=== PATIENT | female | born 1950 | race Caucasian/White ===

== ENCOUNTER 2023-01-05 10:56 | Emergency (ER) | payer MEDICARE ==
--- NOTE | 2023-01-05 11:10 | ED ---
General Adult HPI - General Source: patient, RN notes reviewed Mode of arrival: ambulatory Limitations: no limitations <Kevin Daniels - Last Filed: 01/05/23 11:09> <Ann Lugo - Last Filed: 01/05/23 19:02> - General Stated complaint: sob uti/kidney/bladder issues Time Seen by Provider: 01/05/23 11:09 - History of Present Illness Initial comments: This a 72-year-old female presents emergency Department chief complaint of abdominal back pain. Patient states that she started having some back, flank pain no she was given Anaprox by PCP for possible UTI. She states her urine was very dark at the time but has improved some. She states the pain in her back as sniffily worsened. She states it does hurt to move denies any trauma. She states she still having some abdominal urinary issues also. (Kevin Daniels) - Related Data Home Medications Medication Instructions Recorded Confirmed ALPRAZolam [Xanax] 0.5 mg PO BID PRN 01/05/23 01/05/23 Aspirin EC [Ecotrin] 325 mg PO MOWEFR 01/05/23 01/05/23 Levothyroxine Sodium [Synthroid] 150 mcg PO DAILY 01/05/23 01/05/23 Ondansetron [Zofran] 4 mg PO DAILY PRN 01/05/23 01/05/23 Pregabalin [Lyrica] 75 mg PO HS 01/05/23 01/05/23 Venlafaxine HCl ER [Effexor Xr] 150 mg PO HS 01/05/23 01/05/23 Previous Rx's Medication Instructions Recorded Cyclobenzaprine [Flexeril] 10 mg PO TID PRN #15 tab 01/05/23 Ketorolac [Toradol] 10 mg PO Q8HR #15 tab 01/05/23 Allergies Allergy/AdvReac Type Severity Reaction Status Date / Time Tetanus Vaccines and Toxoid Allergy Swelling Verified 01/05/23 13:43 IV contrast Allergy Swelling Uncoded 01/05/23 13:43 Review of Systems ROS Other: All systems not noted in ROS Statement are negative. <Kevin Daniels - Last Filed: 01/05/23 11:09> ROS Other: All systems not noted in ROS Statement are negative. <Ann Lugo - Last Filed: 01/05/23 19:02> ROS Statement: Those systems with pertinent positive or pertinent negative responses have been documented in the HPI. General Exam <Kevin Daniels - Last Filed: 01/05/23 11:09> - General Exam Comments Initial Comments: Visual Physical Exam Vital signs reviewed General: Well-appearing, nontoxic, no acute distress. Head: Normocephalic, atraumatic Eyes: PERRLA, EOMI ENT: Airway patent Chest: Nonlabored breathing Skin: No visual rash, normal skin tone Neuro: Alert and oriented 3 Musculoskeletal: No gross abnormalities (Kevin Daniels) Course <Ann Lugo - Last Filed: 01/05/23 19:02> Vital Signs 01/05/23 01/05/23 01/05/23 11:17 14:46 16:48 Temperature 98.5 F Pulse Rate 72 69 69 Respiratory 18 18 18 Rate Blood Pressure 92/66 108/70 108/71 O2 Sat by Pulse 99 97 97 Oximetry - Reevaluation(s) Reevaluation #1: 01/05/23 14:20 Patient reevaluated. Patient reports symptomatically improvement status post Toradol. Encouraged to provide urine sample. (Ann Lugo) Medical Decision Making <Kevin Daniels - Last Filed: 01/05/23 11:09> - Lab Data Result diagrams: 01/05/23 11:30 01/05/23 11:29 <Ann Lugo - Last Filed: 01/05/23 19:02> - Medical Decision Making I completed the quick note portion of this chart signed Kevin Daniels PA-C (Kevin Daniels) Was pt. sent in by a medical professional or institution (NIMISHA Woodward, STERILE PROCESSING MANAGER, urgent care, hospital, or half-way...) When possible be specific @ -[No] Did you speak to anyone other than the patient for history (EMS, parent, family, police, friend...)? What history was obtained from this source @ -[No] Did you review nursing and triage notes (agree or disagree)? Why? @ -[I reviewed and agree with nursing and triage notes] Were old charts reviewed (outside hosp., previous admission, EMS record, old EKG, old radiological studies, urgent care reports/EKG's, half-way records)? Report findings @ -[No old charts were reviewed] Differential Diagnosis (chest pain, altered mental status, abdominal pain women, abdominal pain men, vaginal bleeding, weakness, fever, dyspnea, syncope, headache, dizziness, GI bleed, back pain, seizure, CVA, palpatations, mental health, musculoskeletal)? @ -[not applicable] EKG interpreted by me (3pts min.). @ -[As above] X-rays interpreted by me (1pt min.). @ -[None done] CT interpreted by me (1pt min.). @ -Yes CT imaging unremarkable for any evidence of paraspinal abscess or intra- abdominal process U/S interpreted by me (1pt. min.). @ -[None done] What testing was considered but not performed or refused? (CT, X-rays, U/S, labs)? Why? @ -[None] What meds were considered but not given or refused? Why? @ -[None] Did you discuss the management of the patient with other professionals (professionals i.e. , PA, STERILE PROCESSING MANAGER, lab, RT, psych nurse, hospice social worker, composition weatherboard applier, teacher, medical officer, case assembler)? Give summary @ -[No] Was smoking cessation discussed for >3mins.? @ -[No] Was critical care preformed (if so, how long)? @ -[No] Were there social determinants of health that impacted care today? How? (Homelessness, low income, unemployed, alcoholism, drug addiction, transportation, low edu. Level, literacy, decrease access to med. care, residential, rehab)? @ -[No] Was there de-escalation of care discussed even if they declined (Discuss DNR or withdrawal of care, Hospice)? DNR status @ -[No] What co-morbidities impacted this encounter? (DM, HTN, Smoking, COPD, CAD, Cancer, CVA, ARF, Chemo, Hep., AIDS, mental health diagnosis, sleep apnea, morbid obesity)? @ -[None] Was patient admitted / discharged? Hospital course, mention meds given and route, prescriptions, significant lab abnormalities, going to OR and other pertinent info. @ -Discharged. This is a 72-year-old female who presents to the emergency department with back pain. Patient had a thorough history and physical exam performed. Physical exam reveals left-sided CVA tenderness. Patient's vital signs stable. Patient is afebrile. Heart rate regular rate and rhythm, lungs clear to auscultation. Patient had laboratory studies and imagin g which were unremarkable. She was provided Toradol and Flexeril was symptomatically improvement. She'll be discharged home in stable condition. Return precautions discussed at length. She was offered another course of antibiotics however she declined stating she will be seeing her primary care physician on 01/14/2023. Case discussed with MAX Brito who agrees with plan of care Undiagnosed new problem with uncertain prognosis? @ -[No] Drug Therapy requiring intensive monitoring for toxicity (Heparin, Nitro, Insulin, Cardizem)? @ -[No] Were any procedures done? @ -[No] Diagnosis/symptom? @ -Back Pain Acute, or Chronic, or Acute on Chronic? @ -Acute Uncomplicated (without systemic symptoms) or Complicated (systemic symptoms)? @ -Uncomplicated Side effects of treatment? @ -[No] Exacerbation, Progression, or Severe Exacerbation? @ -[No] Poses a threat to life or bodily function? How? (Chest pain, [place], SD, pneumonia, PE, COPD, DKA, ARF, appy, cholecystitis, CVA, Diverticulitis, Homicidal, Suicidal, threat to staff... and all critical care pts) @ -Low likleihood (Ann Lugo) - Lab Data Lab Results 01/05/23 01/05/23 01/05/23 Range/Units 11:29 11:29 11:30 WBC 10.4 (3.8-10.6) k/uL RBC 4.54 (3.80-5.40) m/uL Hgb 13.2 (11.4-16.0) gm/dL Hct 40.3 (34.0-46.0) % MCV 88.9 (80.0-100.0) fL MCH 29.2 (25.0-35.0) pg MCHC 32.8 (31.0-37.0) g/dL RDW 13.6 (11.5-15.5) % Plt Count 263 (150-450) k/uL MPV 8.7 Neutrophils % 49 % Lymphocytes % 40 % Monocytes % 6 % Eosinophils % 2 % Basophils % 1 % Neutrophils # 5.1 (1.3-7.7) k/uL Lymphocytes # 4.2 (1.0-4.8) k/uL Monocytes # 0.7 (0-1.0) k/uL Eosinophils # 0.2 (0-0.7) k/uL Basophils # 0.1 (0-0.2) k/uL Sodium 140 (137-145) mmol/L Potassium 4.5 (3.5-5.1) mmol/L Chloride 107 (98-107) mmol/L Carbon Dioxide 23 (22-30) mmol/L Anion Gap 10 mmol/L BUN 14 (7-17) mg/dL Creatinine 0.87 (0.52-1.04) mg/dL Est GFR (CKD-EPI)AfAm 78 (>60 ml/min/1.73 sqM) Est GFR (CKD-EPI)NonAf 67 (>60 ml/min/1.73 sqM) Glucose 99 (74-99) mg/dL Plasma Lactic Acid Jarad (0.7-2.0) mmol/L Calcium 9.3 (8.4-10.2) mg/dL Total Bilirubin 0.7 (0.2-1.3) mg/dL AST 28 (14-36) U/L ALT 14 (4-34) U/L Alkaline Phosphatase 107 (38-126) U/L Total Protein 7.1 (6.3-8.2) g/dL Albumin 4.0 (3.5-5.0) g/dL Amylase 58 (30-110) U/L Lipase 87 (23-300) U/L Urine Color Yellow Urine Appearance Clear (Clear) Urine pH 5.5 (5.0-8.0) Ur Specific [place] >1.050 H (1.001-1.035) Urine Protein Trace H (Negative) Urine Glucose (UA) Negative (Negative) Urine Ketones Negative (Negative) Urine Blood Small H (Negative) Urine Nitrite Negative (Negative) Urine Bilirubin Negative (Negative) Urine Urobilinogen <2.0 (<2.0) mg/dL Ur Leukocyte Esterase Large H (Negative) Urine RBC 18 H (0-5) /hpf Urine WBC 20 H (0-5) /hpf Ur Squamous Epith Cells 4 (0-4) /hpf Urine Mucus Few H (None) /hpf 01/05/23 Range/Units 11:30 WBC (3.8-10.6) k/uL RBC (3.80-5.40) m/uL Hgb (11.4-16.0) gm/dL Hct (34.0-46.0) % MCV (80.0-100.0) fL MCH (25.0-35.0) pg MCHC (31.0-37.0) g/dL RDW (11.5-15.5) % Plt Count (150-450) k/uL MPV Neutrophils % % Lymphocytes % % Monocytes % % Eosinophils % % Basophils % % Neutrophils # (1.3-7.7) k/uL Lymphocytes # (1.0-4.8) k/uL Monocytes # (0-1.0) k/uL Eosinophils # (0-0.7) k/uL Basophils # (0-0.2) k/uL Sodium (137-145) mmol/L Potassium (3.5-5.1) mmol/L Chloride (98-107) mmol/L Carbon Dioxide (22-30) mmol/L Anion Gap mmol/L BUN (7-17) mg/dL Creatinine (0.52-1.04) mg/dL Est GFR (CKD-EPI)AfAm (>60 ml/min/1.73 sqM) Est GFR (CKD-EPI)NonAf (>60 ml/min/1.73 sqM) Glucose (74-99) mg/dL Plasma Lactic Acid Jarad 2.0 (0.7-2.0) mmol/L Calcium (8.4-10.2) mg/dL Total Bilirubin (0.2-1.3) mg/dL AST (14-36) U/L ALT (4-34) U/L Alkaline Phosphatase (38-126) U/L Total Protein (6.3-8.2) g/dL Albumin (3.5-5.0) g/dL Amylase (30-110) U/L Lipase (23-300) U/L Urine Color Urine Appearance (Clear) Urine pH (5.0-8.0) Ur Specific [place] (1.001-1.035) Urine Protein (Negative) Urine Glucose (UA) (Negative) Urine Ketones (Negative) Urine Blood (Negative) Urine Nitrite (Negative) Urine Bilirubin (Negative) Urine Urobilinogen (<2.0) mg/dL Ur Leukocyte Esterase (Negative) Urine RBC (0-5) /hpf Urine WBC (0-5) /hpf Ur Squamous Epith Cells (0-4) /hpf Urine Mucus (None) /hpf Disposition <Kevin Daniels - Last Filed: 01/05/23 11:09> Is patient prescribed a controlled substance at d/c from ED?: No Time of Disposition: 15:44 <Ann Lugo - Last Filed: 01/05/23 19:02> Clinical Impression: Mechanical back pain Disposition: HOME SELF-CARE Condition: Stable Instructions (If sedation given, give patient instructions): Acute Low Back Pain (ED) Additional Instructions: Monittor symptoms closely Please return to the nearest emergency department if fever, saddle paresthesia, loss of bowel or bladder function developed Prescriptions: Cyclobenzaprine [Flexeril] 10 mg PO TID PRN #15 tab PRN Reason: Muscle Spasm Ketorolac [Toradol] 10 mg PO Q8HR #15 tab Referrals: None,Stated [REFERRING] - 1-2 days
[2023-01-05 11:33] VITALS: RESP 18; TEMP 98.5
[2023-01-05 11:59] LABS: Basophils # (A) 0.1 k/uL (0-0.2); Basophils % (A) 1 %; Eosinophils # (A) 0.2 k/uL (0-0.7); Eosinophils % (A) 2 %; HCT 40.3 % (34.0-46.0); HGB 13.2 gm/dL (11.4-16.0); Lymphocytes # (A) 4.2 k/uL (1.0-4.8); Lymphocytes % (A) 40 %; MCH 29.2 pg (25.0-35.0); MCHC 32.8 g/dL (31.0-37.0); MCV 88.9 fL (80.0-100.0); Mean Platelet Volume 8.7; Monocytes # (A) 0.7 k/uL (0-1.0); Monocytes % (A) 6 %; Neutrophils # (A) 5.1 k/uL (1.3-7.7); Neutrophils % (A) 49 %; Platelet Count 263 k/uL (150-450); RBC 4.54 m/uL (3.80-5.40); RDW 13.6 % (11.5-15.5); WBC 10.4 k/uL (3.8-10.6)
[2023-01-05 12:18] LABS: ALT 14 U/L (4-34); African American GFR (CKD) 78 (>60 ml/min/1.73 sqM); Amylase 58 U/L (30-110); Anion Gap 10 mmol/L; Blood Urea Nitrogen 14 mg/dL (7-17); Calcium 9.3 mg/dL (8.4-10.2); Carbon Dioxide 23 mmol/L (22-30); Chloride 107 mmol/L (98-107); Glucose 99 mg/dL (74-99); Lipase 87 U/L (23-300); Non-African American GFR(CKD) 67 (>60 ml/min/1.73 sqM); Sodium 140 mmol/L (137-145); Total Bilirubin 0.7 mg/dL (0.2-1.3); Total Protein 7.1 g/dL (6.3-8.2)
[2023-01-05 12:20] LABS: Potassium 4.5 mmol/L (3.5-5.1)
[2023-01-05 12:21] LABS: AST 28 U/L (14-36); Alkaline Phosphatase 107 U/L (38-126)
[2023-01-05] MEDS ORDERED: methylPREDNISolone SOD SUCCI 125 MG/2 ML VIAL IV STA (12:42)
[2023-01-05] MEDS ORDERED: FAMOTIDINE 20 MG/2 ML VIAL IV STA (12:42)
[2023-01-05] MEDS ORDERED: diphenhydrAMINE 50 MG/ML 1 ML VIAL IVP STA (12:42)
[2023-01-05] MEDS ORDERED: ONDANSETRON 4 MG/2 ML VIAL IVP STA (12:56)
[2023-01-05] MEDS ORDERED: SODIUM CHLORIDE 0.9% 500 ML 500 ML IV ONE (12:58)
[2023-01-05] MEDS ORDERED: KETOROLAC 15 MG/ML 1 ML VIAL IVP STA (13:02)
--- NOTE | 2023-01-05 13:47 | CT ---
EXAMINATION TYPE: CT abdomen pelvis w con DATE OF EXAM: 01/05/2023 COMPARISON: None HISTORY: left flank pain CT DLP: 1170.1 mGycm CONTRAST: CT scan of the abdomen and pelvis is performed without Oral Contrast and with IV Contrast, patient in jected with 100 mL of Isovue 300. FINDINGS: LUNG BASES-: No visible nodule. No infiltrate. LIVER/GB: The gallbladder surgically absent. No space occupying hepatic lesion. Biliary tree is of no rmal caliber. PANCREAS: No inflammation. No distinct mass. SPLEEN: No splenic enlargement. No lesion seen. ADRENALS: No nodule. No thickening. KIDNEYS/BLADDER: No hydronephrosis. No nephrolithiasis. There are a few small cystic lesions left k idney. Urinary bladder grossly unremarkable. BOWEL: Normal appendix. Normal bowel caliber. No inflammation. Gastric banding Similar to be in place. Sigmoid diverticulosis without diverticulitis. GENITAL ORGANS: The gallbladder is surgically absent. LYMPH NODES: No greater than 1cm abdominal or pelvic lymph nodes are appreciated. AORTA: No significant abnormality. OSSEOUS STRUCTURES: No significant abnormality is seen. OTHER: No significant additional abnormality is seen. IMPRESSION: 1. No acute process seen at this time.
[2023-01-05] MEDS ORDERED: SODIUM CHLORIDE 0.9% 1,000 ML IV ONE (14:10)
[2023-01-05] MEDS ORDERED: CYCLOBENZAPRINE 10 MG TAB PO STA (14:15)
[2023-01-05 15:10] VITALS: PULSE 69
[2023-01-05 15:37] LABS: Appearance,Urine Clear (Clear); Bilirubin,Urine Negative (Negative); Blood,Urine Small (Negative); Color,Urine Yellow; Glucose,Urine (UA) Negative (Negative); Ketones,Urine Negative (Negative); Leukocyte Esterase,Urine Large (Negative); Mucus,Urine Few /hpf; Nitrite,Urine Negative (Negative); PH, Urine 5.5 (5.0-8.0); Protein,Urine Trace (Negative); RBC,Urine 18 /hpf (0-5); Squamous Epithelial Cell,Urine 4 /hpf (0-4); Urobilinogen,Urine <2.0 mg/dL (<2.0); WBC,Urine 20 /hpf (0-5)
[2023-01-05 15:50] LABS: Specific Gravity,Urine >1.050 (1.001-1.035)
[2023-01-05 17:07] VITALS: BP 108/71
== END 2023-01-05 16:49 | disposition home or self-care (01) ==
LOC: EC 10:56
DX: M54.9 Dorsalgia, unspecified (principal); Z88.7 Allergy status to serum and vaccine; Z88.8 Allergy status to other drugs, medicaments and biological substances
CPT/HCPCS: 99285 ×2; 96374 ×2; 96375 ×5; 36415; 80053; 82150; 83605; 83690; 85025; 81001; 87086; 74177; J1200; J2930; J2405; J3490; J1885; Q9967